=== PATIENT | male | born 1955 | race African-American/Black ===

== ENCOUNTER 2024-02-05 08:03 | Day surgery (SDC) | payer OTHER ==
[2024-01-28 14:08] VITALS: BMI 24.3
[2024-02-05] MEDS ORDERED: VANCOMYCIN 1,000 MG VIAL (RESTRICTED TO ID ONLY) ONE (10:04)
[2024-02-05] MEDS ORDERED: HEPARIN NA (PORCINE) 5,000 UNITS/ML 1ML VIAL ONE (10:05)
[2024-02-05] MEDS ORDERED: ACETAMINOPHEN INJECTION 100 ML IVPB ONE (11:10)
[2024-02-05] MEDS ORDERED: BUPIVACAINE HCL/PF 0.5% (5 MG/ML) 30 ML VIAL IJ ONE (11:10)
[2024-02-05] MEDS ORDERED: MIDAZOLAM HCL 2 MG/2 ML SINGLE DOSE VIAL ONE (11:10)
[2024-02-05] MEDS ORDERED: MAGNESIUM HYDROX 2400MG/30ML ORAL SUSPENSION 30 ML CUP PO PRN (11:41)
[2024-02-05] MEDS ORDERED: ONDANSETRON 4 MG/2 ML VIAL IVPUSH PRN (11:41)
[2024-02-05] MEDS ORDERED: MAG HYDROX/AL HYDROX/SIMETH 30 ML UNIT-DOSE CUP PO PRN (11:41)
[2024-02-05] MEDS ORDERED: ALBUTEROL SO4 HFA INHALER IH PRN (11:46)
[2024-02-05] MEDS ORDERED: BUPIVACAINE HCL/PF 0.5% (5MG/ML) 10 ML VIAL ONE (12:08)
[2024-02-05] MEDS ORDERED: ceFAZolin SODIUM 1 GM VIAL ONE ×2 (12:27)
[2024-02-05] MEDS ORDERED: TRANEXAMIC ACID 1000 MG/10 ML VIAL ONE ×2 (12:27→14:18)
[2024-02-05] MEDS ORDERED: PROPOFOL 20 ML ONE ×2 (12:37→13:30)
[2024-02-05] MEDS ORDERED: ONDANSETRON 4 MG/2 ML VIAL ONE (13:33)
[2024-02-05] MEDS ORDERED: DEXAMETHASONE SOD PHOSPHATE 4 MG/1 ML VIAL ONE (13:33)
[2024-02-05] MEDS ORDERED: KETOROLAC TROMETHAMINE 30 MG/1 ML VIAL ONE (13:33)
[2024-02-05] MEDS ORDERED: BUPIVICAINE 0.25%/MORPH PF/KETOROLAC - 51ML DISP.SYRINGE IA ONE (13:47)
[2024-02-05] MEDS: VANCOMYCIN 1,000 MG VIAL (RESTRICTED TO ID ONLY) IVPB ONE (14:10)
[2024-02-05] MEDS: BUPIVICAINE 0.25%/MORPH PF/KETOROLAC - 51ML DISP.SYRINGE IA ONE (14:18)
[2024-02-05] MEDS ORDERED: oxyCODONE HCL 5 MG TABLET PO PRN (15:05)
[2024-02-05 15:28] LABS: HEMATOCRIT 37.3 % (35.4-49); HEMOGLOBIN 12.1 G/dL (11.7-16.9); MCH 33.7 pg (25.7-33.7); MCHC 32.4 g/dl (32.0-35.9); MEAN CELL VOLUME 103.8 fl (80-96); MEAN PLT VOLUME 7.9 fl (7.5-11.1); PLATELET COUNT 238.7 10^3/uL (134-434); RBC 3.59 10^6/uL (4.00-5.60); RDW 13.2 % (11.9-15.9); WHITE BLOOD COUNT 7.5 10^3/uL (4.0-10.8)
[2024-02-05 16:19] VITALS: RESP 18
[2024-02-05] MEDS: CEFAZOLIN SODIUM 2 GM in DEXTROSE 5%-WATER 100 ML IVPB ONE (16:24)
[2024-02-05] MEDS: LACTATED RINGERS SOLUTION 1,000 ML IV SCH ×2 (16:24)
[2024-02-05] MEDS: CEFAZOLIN SODIUM 2 GM in DEXTROSE 5%-WATER 100 ML IVPB SCH (20:08)
[2024-02-05] MEDS ORDERED: PATIENT'S OWN MEDICATION (NON-FORMULARY) (Dorzolamide/Timolol/Pf [Dorzolamide-Timolol 2%-0 OU SCH (22:00)
[2024-02-05] MEDS: TAMSULOSIN HCL 0.4 MG CAP PO SCH (22:03)
[2024-02-05] MEDS: GABAPENTIN 300 MG CAPSULE PO SCH (22:03)
[2024-02-05] MEDS: ASPIRIN 81 MG CHEWABLE TABLETS PO SCH (22:03)
[2024-02-05] MEDS: ASCORBIC ACID 500 MG TABLET (FP) PO SCH (22:03)
[2024-02-05] MEDS: SENNOSIDES/DOCUSATE COMBO (SENNA PLUS) TABLET (UD) PO SCH (22:03)
[2024-02-05] MEDS: BUDESONIDE/FORMETEROL FUMARATE 160/4.5 mcg INHALER IH SCH (22:06)
[2024-02-05] MEDS: DORZOLAMIDE 2% HCL OPHTHALMIC SOLUTION 10 ML BOTTLE OU SCH (22:07)
[2024-02-05] MEDS: TIMOLOL 0.5% OPHTHALMIC SOL 5 ML BOTTLE OU SCH (22:07)
[2024-02-05] MEDS: LATANOPROST 0.005% OPHTH SOLN 2.5ML BOTTLE OU SCH (22:08)
[2024-02-05] MEDS: ACETAMINOPHEN 500 MG TABLET (FP) PO PRN (22:10)
[2024-02-06] MEDS: oxyCODONE HCL 5 MG TABLET PO PRN (06:32)
[2024-02-06 08:34] LABS: HEMATOCRIT 34.7 % (35.4-49); HEMOGLOBIN 11.4 G/dL (11.7-16.9); MCH 34.4 pg (25.7-33.7); MEAN CELL VOLUME 104.1 fl (80-96); MEAN PLT VOLUME 8.4 fl (7.5-11.1); RBC 3.33 10^6/uL (4.00-5.60); RDW 13.4 % (11.9-15.9); WHITE BLOOD COUNT 9.3 10^3/uL (4.0-10.8)
[2024-02-06] MEDS: CHOLECALCIFEROL (VIT D3) 1,000 UNIT (25 MCG) TABLET PO SCH (09:13)
[2024-02-06] MEDS: PANTOPRAZOLE 40 MG TABLET PO SCH (09:13)
[2024-02-06] MEDS: CELECOXIB 200 MG CAPSULE PO SCH (09:13)
[2024-02-06 09:15] LABS: CALCIUM 8.7 mg/dl (8.5-10.1); CREATININE 0.9 mg/dl (0.6-1.3); POTASSIUM 4.3 mmol/L (3.5-5.1)
[2024-02-06] MEDS: MULTIVITAMINS (DAILY MVI) TABLET (FP) PO SCH (09:17)
[2024-02-06] MEDS ORDERED: PATIENT'S OWN MEDICATION (NON-FORMULARY) (Potassium Citrate [Potassium] 99 MG Capsule) PO SCH (10:00)
[2024-02-06] MEDS ORDERED: ZINC GLUCONATE 10 MG PO SCH (10:00)
[2024-02-06] MEDS: FERROUS SO4 325 MG TABLET (FP) PO SCH (11:49)
[2024-02-06 14:25] VITALS: BP 118/60; PULSE 90; TEMP 98.6
== END 2024-02-06 17:22 | disposition home or self-care (01) ==
LOC: FASUSAT 08:03 → SUATTDRO 08:03 → FM/S 15:55 → FASUSAT 02-06 17:22
PROC: 8E0Y0CZ Robotic Assisted Procedure of Lower Extremity, Open Approach (ICD-10-PCS; 2024-02-05)
PROC: 0SR90JA Replacement of Right Hip Joint with Synthetic Substitute, Uncemented, Open Approach (ICD-10-PCS; principal; 2024-02-05 12:51)
DX: M16.11 Unilateral primary osteoarthritis, right hip (principal)
CPT/HCPCS: 20985; 27130; C1776; S2900; 36415; 73502-TC-RT-FY; 80048; 85027; 88305-TC; 88311-TC; 94760; 97010-GP; 97110-GP; 97116-GP; C1713; C1889; J0131; J1644